=== PATIENT | male | born 1955 | race Caucasian/White ===

== ENCOUNTER 2017-07-24 13:17 | Emergency (ER) | payer OTHER ==
[~2017-07-24] VITALS: Ht 177.8 cm; Wt 91.2 kg
[~2017-07-24 13:17] MED LIST: METFORMIN HCL500 M2 PO
[2017-07-24] MEDS: FAMOTIDINE 20 MG TAB PO ONE (13:34)
[2017-07-24] MEDS ORDERED: FAMOTIDINE 20 MG TAB ONE (13:34)
[2017-07-24] MEDS ORDERED: DEXAMETHASONE SOD PHOS 10 MG/1 ML VIAL ONE (13:34)
[2017-07-24] MEDS: DEXAMETHASONE SOD PHOS 10 MG/1 ML VIAL IV ONE (13:34)
== END 2017-07-24 14:55 | disposition home or self-care (01) ==
LOC: ER 13:21
DX: T78.3XXA Angioneurotic edema, initial encounter (principal); T78.1XXA Other adverse food reactions, not elsewhere classified, initial encounter; L27.2 Dermatitis due to ingested food; I10 Essential (primary) hypertension; E11.9 Type 2 diabetes mellitus without complications
CPT/HCPCS: 99282; J1100

== ENCOUNTER 2020-08-13 09:46 | Emergency (ER) | payer BC, OTHER ==
[~2020-08-13] VITALS: Ht 177.8 cm; Wt 91.2 kg
[2020-08-13] MEDS ORDERED: SODIUM CHLORIDE 0.9% 1000ML 1,000 ML IV STA ×2 (10:16→11:06)
[2020-08-13] MEDS ORDERED: PANTOPRAZOLE 40 MG 10ML VIAL IV NR (10:16)
[2020-08-13 10:27] LABS: BASOPHILS # (AUTO) 0.1 (0.0-0.1); BASOPHILS % 0.7 % (0.0-1.0); EOSINOPHILS # (AUTO) 0.1 (0.0-0.4); EOSINOPHILS % 1.8 % (0.0-6.0); HEMATOCRIT 45.8 % (38.2-49.6); HEMOGLOBIN 15.9 g/dL (14.0-18.0); LYMPHOCYTES # (AUTO) 1.2 (1.0-3.2); LYMPHOCYTES % 18.5 % (18.0-39.1); MEAN CORPUSCULAR HEMOGLOBIN 30.8 pg (28-32); MEAN CORPUSCULAR HGB CONC 34.7 g/dL (31-35); MEAN CORPUSCULAR VOLUME 88.6 fL (81-99); MONOCYTES # (AUTO) 0.4 (0.2-0.8); MONOCYTES % 6.4 % (4.4-11.3); NEUTROPHILS # (AUTO) 4.8 (2.1-6.9); NEUTROPHILS % 71.9 % (38.7-80.0); PLATELET COUNT 232 x10e3/uL (140-360); RED BLOOD COUNT 5.17 x10e6/uL (4.3-5.7); RED CELL DISTRIBUTION WIDTH 12.3 % (11.7-14.4)
[2020-08-13] MEDS ORDERED: HYDROCODONE/APAP 5MG-325MG TAB PO NR (10:30)
[2020-08-13] MEDS ORDERED: KETOROLAC TROMETHAMINE 30 MG/ML VIAL IV NR (10:30)
[2020-08-13 10:33] LABS: CLARITY,URINE CLEAR (CLEAR); COLOR,URINE YELLOW (YELLOW)
[2020-08-13 10:34] LABS: KETONES,URINE NEGATIVE (NEGATIVE); LEUKOCYTE ESTERASE ,URINE NEGATIVE (NEGATIVE); NITRITE,URINE NEGATIVE (NEGATIVE); PROTEIN,URINE DIPSTICK NEGATIVE (NEGATIVE); URINE UROBILINOGEN 0.2 mg/dL (0.2 - 1)
[2020-08-13 10:40] LABS: INR 0.92; PROTHROMBIN TIME 12.9 seconds (11.9-14.5)
[2020-08-13 10:41] LABS: PARTIAL THROMBOPLASTIN TIME 31.2 seconds (23.8-35.5)
[2020-08-13 10:45] LABS: ALANINE AMINOTRANSFERASE 91 IU/L (0-55); ALBUMIN 4.2 g/dL (3.5-5.0); ALBUMIN/GLOBULIN RATIO 1.4 (0.8-2.0); ALKALINE PHOSPHATASE 92 IU/L (40-150); ANION GAP 14.3 mmol/L (8-16); BLOOD UREA NITROGEN 20 mg/dL (7-26); BUN/CREATININE RATIO 17 (6-25); CALCIUM 9.9 mg/dL (8.4-10.2); CARBON DIOXIDE 23 mmol/L (22-29); CHLORIDE 103 mmol/L (98-107); CREATINE KINASE 80 IU/L (30-200); CREATININE, SERUM 1.18 mg/dL (0.72-1.25); EST GLOMERULAR FILTRATION RATE > 60 ML/MIN (60-); POTASSIUM 4.3 mmol/L (3.5-5.1); SODIUM 136 mmol/L (136-145)
[2020-08-13 10:46] LABS: BACTERIA,URINE RARE /HPF; EPITHELIAL CELLS,URINE FEW /LPF; RBC,URINE 0-5 /HPF (0-5); WBC,URINE (MAN) 0-5 /HPF (0-5)
[2020-08-13 10:51] LABS: GLUCOSE 413 mg/dL (74-118)
[2020-08-13] MEDS ORDERED: INSULIN LISPRO 100 UNIT/1 ML 3ML VIAL SQ NR (11:06)
[2020-08-13 14:13] VITALS: BP 132/80
== END 2020-08-13 18:40 | disposition home or self-care (01) ==
LOC: ER 10:17
DX: E11.65 Type 2 diabetes mellitus with hyperglycemia (principal); R19.7 Diarrhea, unspecified; E86.0 Dehydration; R42 Dizziness and giddiness; R53.83 Other fatigue; I10 Essential (primary) hypertension; M43.22 Fusion of spine, cervical region
CPT/HCPCS: 36415; 74176; 80053; 81001; 82550; 82553; 82948; 83735; 84484; 85025; 85610; 85730; 87086; 93005; 99284; C9113; J1885; J7030